=== PATIENT | male | born 1975 | race Caucasian/White ===

== ENCOUNTER → 2019-07-19 | Outpatient (CLI) | payer BC ==
[2019-07-19 08:55] LABS: HEMOGLOBIN 16.1 G/DL (13.3-17.7); MEAN PLATELET VOLUME 9.6 FL (7.4-10.4); RED CELL DISTRIBUTION WIDTH 13.4 % (10.0-14.5); WHITE BLOOD COUNT 9.8 10^3/uL (4.3-11.0)
[2019-07-19 09:22] LABS: ALANINE AMINOTRANSFERASE 78 U/L (0-55); ALBUMIN 4.3 GM/DL (3.2-4.5); ALKALINE PHOSPHATASE 74 U/L (40-136); BUN/CREATININE RATIO 15; CALCIUM 9.1 MG/DL (8.5-10.1); CARBON DIOXIDE 26 MMOL/L (21-32); CHLORIDE 101 MMOL/L (98-107); CREATININE SERUM 0.95 MG/DL (0.60-1.30); GFR ESTIMATED > 60; GLUCOSE 91 MG/DL (70-105); POTASSIUM 4.2 MMOL/L (3.6-5.0); SODIUM 135 MMOL/L (135-145)
== END ==
LOC: LAB 08:24
PROVIDERS: ATTEND Family Medicine
DX: I10 Essential (primary) hypertension (principal); B19.20 Unspecified viral hepatitis C without hepatic coma
CPT/HCPCS: 36415; 80053; 85027; 87522; 87902

== ENCOUNTER → 2019-11-16 | Outpatient (CLI) | payer BC | LOC: LAB 12:04 | PROVIDERS: ATTEND Internal Medicine Gastroenterology | DX: B18.2 Chronic viral hepatitis C (principal) | CPT/HCPCS: 36415; 87522 ==

== ENCOUNTER → 2019-12-07 | Outpatient (CLI) | payer BC | LOC: LAB 14:32 | PROVIDERS: ATTEND Internal Medicine Gastroenterology | DX: B18.2 Chronic viral hepatitis C (principal) | CPT/HCPCS: 36415; 87522 ==

== ENCOUNTER 2020-03-31 16:58 | Emergency (ER) | payer BC ==
[~2020-03-31] VITALS: Ht 182.8 cm; Wt 97.5 kg
[2020-03-31 17:56] LABS: BASOPHILS # (AUTO) 0.1 10^3/uL (0.0-0.1); BASOPHILS % (AUTO) 1 % (0-10); EOSINOPHILS # (AUTO) 0.5 10^3/uL (0.0-0.3); EOSINOPHILS % (AUTO) 6 % (0-10); HEMATOCRIT 50 % (40-54); HEMOGLOBIN 17.3 g/dL (13.3-17.7); LYMPHOCYTES # (AUTO) 2.4 10^3/uL (1.0-4.0); LYMPHOCYTES % (AUTO) 31 % (12-44); MEAN CORPUSCULAR HEMOGLOBIN 34 pg (25-34); MEAN CORPUSCULAR HGB CONC 35 g/dL (32-36); MEAN CORPUSCULAR VOLUME 98 fL (80-99); MEAN PLATELET VOLUME 9.3 fL (9.0-12.2); MONOCYTES # (AUTO) 0.5 10^3/uL (0.0-1.0); MONOCYTES % (AUTO) 7 % (0-12); NEUTROPHILS # (AUTO) 4.2 10^3/uL (1.8-7.8); NEUTROPHILS % (AUTO) 55 % (42-75); PLATELET COUNT 262 10^3/uL (130-400); WHITE BLOOD COUNT 7.6 10^3/uL (4.3-11.0)
[2020-03-31 18:05] LABS: ALBUMIN 4.2 GM/DL (3.2-4.5)
[2020-03-31 18:06] LABS: CHLORIDE 102 MMOL/L (98-107); POTASSIUM 3.9 MMOL/L (3.6-5.0); PROTHROMBIN TIME PATIENT 13.3 SEC (12.2-14.7); SODIUM 138 MMOL/L (135-145)
[2020-03-31 18:07] LABS: CALCIUM 9.4 MG/DL (8.5-10.1)
[2020-03-31 18:08] LABS: GLUCOSE 95 MG/DL (70-105); TOTAL PROTEIN 7.2 GM/DL (6.4-8.2)
[2020-03-31 18:09] LABS: CARBON DIOXIDE 24 MMOL/L (21-32)
[2020-03-31 18:10] LABS: BILIRUBIN,TOTAL 0.7 MG/DL (0.1-1.0)
[2020-03-31 18:11] LABS: ALKALINE PHOSPHATASE 105 U/L (40-136)
[2020-03-31 18:12] LABS: CREATININE SERUM 0.83 MG/DL (0.60-1.30); GFR ESTIMATED > 60
[2020-03-31 18:13] LABS: BUN/CREATININE RATIO 11
[2020-03-31 18:15] LABS: ALANINE AMINOTRANSFERASE 29 U/L (0-55)
--- NOTE | 2020-03-31 18:25 | ED GI ---
General Chief Complaint: Rect Problems Stated Complaint: RECTAL BLEEDING Nursing Triage Note: PT AMB TO [facility] 1 WITH COMPLAINT OF RECTAL BLEEDING. STATES HAS HAD INTERMITTENT DIARRHEA FOR MONTHS. [facility] BLOOD APPEARS TO BE FRESH. Sepsis Screen: No Definite Risk Source of Information: Patient Exam Limitations: No Limitations History of Present Illness Date Seen by Provider: Mar 31, 2020 Time Seen by Provider: 17:30 Allergies and Home Medications Allergies Uncoded Allergies: [id number] (TETANUS) (Allergy, Mild, 10/28/08) Past Lnujhpc-Iiejyc-Gowpuj Hx Patient Social History Alcohol Use: Regular Use Alcohol Beverage of Choice: Whiskey Recreational Drug Use: No Smoking Status: Current Everyday Smoker Type Used: Cigarettes Recent Foreign Travel: No Contact w/Someone Who Travel: No Recent Infectious Disease Expo: No Immunizations Up To Date Tetanus Booster (TDap): Unknown PED Vaccines UTD: Yes Past Medical History Surgeries: No Cardiac: Yes Hypertension Neurological: No Genitourinary: No Gastrointestinal: No Musculoskeletal: No Endocrine: No HEENT: No Cancer: No Psychosocial: No Blood Disorders: No Physical Exam Vital Signs Vital Signs - First Documented 03/31/20 17:18 Temp 36.1 Pulse 103 Resp 17 B/P (MAP) 144/111 (122) Pulse Ox 94 O2 Delivery Room Air Capillary Refill : Less Than 3 Seconds Height/Weight/BMI Height: 6'" Weight: 169lbs. oz. 76.382888hh; 29.00 BMI Method: Progress/Results/Core Measures Results/Orders Lab Results Laboratory Tests Test 03/31/20 17:52 Range/Units White Blood Count 7.6 4.3-11.0 10^3/uL Red Blood Count 5.05 4.30-5.52 10^6/uL Hemoglobin 17.3 13.3-17.7 g/dL Hematocrit 50 40-54 % Mean Corpuscular Volume 98 80-99 fL Mean Corpuscular Hemoglobin 34 25-34 pg Mean Corpuscular Hemoglobin Concent 35 32-36 g/dL Red Cell Distribution Width 12.6 10.0-14.5 % Platelet Count 262 130-400 10^3/uL Mean Platelet Volume 9.3 9.0-12.2 fL Immature Granulocyte % (Auto) 0 % Neutrophils (%) (Auto) 55 42-75 % Lymphocytes (%) (Auto) 31 12-44 % Monocytes (%) (Auto) 7 0-12 % Eosinophils (%) (Auto) 6 0-10 % Basophils (%) (Auto) 1 0-10 % Neutrophils # (Auto) 4.2 1.8-7.8 10^3/uL Lymphocytes # (Auto) 2.4 1.0-4.0 10^3/uL Monocytes # (Auto) 0.5 0.0-1.0 10^3/uL Eosinophils # (Auto) 0.5 H 0.0-0.3 10^3/uL Basophils # (Auto) 0.1 0.0-0.1 10^3/uL Immature Granulocyte # (Auto) 0.0 0.0-0.1 10^3/uL Prothrombin Time 13.3 12.2-14.7 SEC INR Comment 1.0 0.8-1.4 Activated Partial Thromboplast Time 30 24-35 SEC Sodium Level 138 135-145 MMOL/L Potassium Level 3.9 3.6-5.0 MMOL/L Chloride Level 102 98-107 MMOL/L Carbon Dioxide Level 24 21-32 MMOL/L Anion Gap 12 5-14 MMOL/L Blood Urea Nitrogen 9 7-18 MG/DL Creatinine 0.83 0.60-1.30 MG/DL Estimat Glomerular Filtration Rate > 60 BUN/Creatinine Ratio 11 Glucose Level 95 70-105 MG/DL Calcium Level 9.4 8.5-10.1 MG/DL Corrected Calcium 9.2 8.5-10.1 MG/DL Total Bilirubin 0.7 0.1-1.0 MG/DL Aspartate Amino Transf (AST/SGOT) 37 H 5-34 U/L Alanine Aminotransferase (ALT/SGPT) 29 0-55 U/L Alkaline Phosphatase 105 40-136 U/L Total Protein 7.2 6.4-8.2 GM/DL Albumin 4.2 3.2-4.5 GM/DL My Orders Orders - KADE DIAZ MD Cbc With Automated Diff (03/31/20 17:37) Comprehensive Metabolic Panel (03/31/20 17:37) Protime With Inr (03/31/20 17:37) Partial Thromboplastin Time (03/31/20 17:37) Ed Iv/Invasive Line Start (03/31/20 17:37) Fecal Occult Bedside (03/31/20 17:37) Hs C Reactive Protein (03/31/20 18:21) Erythrocyte Sedimentation Rate (03/31/20 18:21) Vital Signs/I&O 03/31/20 17:18 Temp 36.1 Pulse 103 Resp 17 B/P (MAP) 144/111 (122) Pulse Ox 94 O2 Delivery Room Air Blood Pressure Mean: 122 Fecal Occult: Positive Departure Impression Primary Impression: Rectal bleeding Additional Impression: Diarrhea Qualified Codes: R19.7 - Diarrhea, unspecified Disposition: 01 HOME, SELF-CARE Condition: Stable Departure-Patient Inst. Decision time for Depature: 18:23 Referrals: GRISEL MULLIGAN RICHARD A DO (PCP/Family) Primary Care Physician Patient Instructions: Bloody Stools, Adult (DC) Add. Discharge Instructions: Follow-up with Dr. Mulligan or your choice of surgeon or electric wheelchair repairer as soon as possible. Please call on Thursday to make an appointment. You need a colonoscopy to further evaluate your rectal bleeding. Return to the emergency room if symptoms worsen in the meantime. All discharge instructions reviewed with patient and/or family. Voiced understanding. Copy Copies To 1: NAZANIN MONTERROSO DO Copies To 2: GRISEL MULLIGAN JOSHUA T MD Mar 31, 2020 18:25
[2020-03-31 18:38] VITALS: BP 144/111
== END 2020-03-31 18:38 | disposition home or self-care (01) ==
LOC: EDUNIT# 16:58 → ER 16:59
DX: K62.5 Hemorrhage of anus and rectum (principal); R19.7 Diarrhea, unspecified; F17.210 Nicotine dependence, cigarettes, uncomplicated; Z88.7 Allergy status to serum and vaccine
CPT/HCPCS: 36415; 80053; 82274; 85025; 85610; 85652; 85730; 86141

== ENCOUNTER 2020-05-04 05:37 | Outpatient (RCR) | payer BC ==
[~2020-05-04] VITALS: Ht 182.9 cm; Wt 93.0 kg
[~2020-05-04 05:37] MED LIST: LISI10TA2 PO
== END 2020-05-04 11:48 | disposition home or self-care (01) ==
LOC: PREOP 05:37
PROVIDERS: ATTEND Surgery
DX: Z01.812 Encounter for preprocedural laboratory examination (principal); Z20.828 Contact with and (suspected) exposure to other viral communicable diseases; Z80.0 Family history of malignant neoplasm of digestive organs
CPT/HCPCS: 87635

== ENCOUNTER 2020-05-08 09:50 | Day surgery (SDC) | payer BC ==
[~2020-05-08] VITALS: Ht 182.9 cm; Wt 93.0 kg
[2020-05-08] MEDS ORDERED: LACTATED RINGERS 1,000 ML IV ONE (09:51)
--- NOTE | 2020-05-08 10:06 | Progress Note-Pre Operative ---
Pre-Operative Progress Note H&P Reviewed The H&P was reviewed, patient examined and no changes noted. Date Seen by Provider: May 08, 2020 Time Seen by Provider: 10:06 Date H&P Reviewed: May 08, 2020 Time H&P Reviewed: 10:06 Pre-Operative Diagnosis: family history of colon cancer, bright red blood per rectum GRISEL PONCE DO May 08, 2020 10:06
[2020-05-08] MEDS ORDERED: LACTATED RINGERS 1,000 ML IV STA (10:09)
[2020-05-08 10:20] VITALS: BP 141/105
[2020-05-08] MEDS ORDERED: MIDAZOLAM 5 MG/5 ML (VERSED) VIAL ONE (10:38)
[2020-05-08] MEDS ORDERED: PROPOFOL INJECTION 50 ML IV ONE ×2 (10:39→11:06)
[2020-05-08 11:30] VITALS: BP 120/87
--- NOTE | 2020-05-08 11:31 | Progress Note-Post Operative ---
Post-Operative Progess Note Surgeon (s)/Filler Shredder Machine (s) Surgeon GRISEL PONCE DO Filler Shredder Machine: na Pre-Operative Diagnosis family history of colon cancer, bright red blood per rectum Post-Operative Diagnosis Internal hemorrhoids, ascending colon polyp x1, sigmoid colon polyp x1 Procedure & Operative Findings Date of Procedure 05/08/20 Procedure Performed/Findings Colonoscopy with hot biopsy, polypectomy x2 Anesthesia Type per WASTEWATER PROCESS ENGINEER Estimated Blood Loss Estimated blood loss (mL): none Specimens/Packing Specimens Removed Ascending colon polyp x1, sigmoid colon polyp x1 GRISEL PONCE DO May 08, 2020 11:31
--- NOTE | 2020-05-08 11:32 | Discharge Inst-Simple/Standard ---
Discharge Inst-Standard Patient Instructions/Follow Up Plan of Care/Instructions/FU: 2 weeks Ese Activity as Tolerated: Yes Discharge Diet: Regular Diet GRISEL PONCE DO May 08, 2020 11:32
[2020-05-08 11:35] VITALS: BP 125/86
[2020-05-08 11:40] VITALS: BP 125/86
[2020-05-08 12:20] VITALS: BP 130/89
[2020-05-08 12:25] VITALS: BP 130/89
--- NOTE | 2020-05-08 13:36 | Anesthesia-General Post-Op ---
MAC Patient Condition Mental Status/LOC: Same as Preop Cardiovascular: Satisfactory Nausea/Vomiting: Absent Respiratory: Satisfactory Pain: Controlled Complications: Absent Post Op Complications Complications None Follow Up Care/Instructions Patient Instructions None needed. Anesthesiology Discharge Order Discharge Order Patient is doing well, no complaints, stable vital signs, no apparent adverse anesthesia problems. No complications reported per nursing. AMAN CARRILLO CRNA May 08, 2020 13:36
--- NOTE | 2020-05-08 14:37 | OPERATIVE REPORT ---
DATE OF SERVICE: 05/08/2020 PREOPERATIVE DIAGNOSIS: Family history of colon cancer, bright red blood per rectum. POSTOPERATIVE DIAGNOSES: Internal hemorrhoid, descending colon polyp x1 and sigmoid colon polyp x1. PROCEDURES PERFORMED: Colonoscopy with hot biopsy polypectomy x2. SURGEON: Grisel Mulligan DO. ANESTHESIA: Per RN RADIOLOGY. ESTIMATED BLOOD LOSS: None. COMPLICATIONS: None. INDICATIONS FOR PROCEDURE: The patient is a 44-year-old male with family history of colon cancer and has had bright red bleeding per rectum. He understands the risks and benefits of the procedures and wished to proceed with the procedure. Consent was signed in the chart. DESCRIPTION OF PROCEDURE: The patient was taken to the endoscopy suite and placed in a left lateral recumbent position. Timeout was performed. Digital rectal exam was performed. There were no palpable polyps, masses and ulcerations, but there was internal hemorrhoidal disease. Scope was inserted in the rectum, advanced all the way to cecum with minimal difficulty. Prep was adequate. Scope was then slowly retracted back. There were no polyps, masses or ulcerations within the cecum. In the ascending colon, a small polyp was present, which hot biopsy polypectomy was performed. Scope was then continuously retracted back. There were no other polyps, masses or ulcerations within the remainder of the ascending, transverse and descending colon. In the sigmoid colon, another small polyp was present, which hot biopsy polypectomy was performed. Scope was then continuously retracted back into the rectum, where the scope was retroflexed noting internal hemorrhoids. No other pathology. Scope was returned to its normal position, slowly withdrawn until completely removed. The patient tolerated the procedure well without any complications and taken to the recovery room in a stable condition. RECOMMENDATIONS: The patient will need repeat colonoscopy in five years. Any issues before that be seen at that time. The patient will follow up on pathology in the office in approximately two weeks. We would also consider hemorrhoid energy therapy (HET) for internal hemorrhoids. Job ID: [id number] DocumentID: [id number] Dictated Date: 05/08/2020 11:35:06 Roller Leveler Operator Date: 05/08/2020 14:37:23 Dictated By: GRISEL MULLIGAN DO
== END 2020-05-08 12:25 | disposition home or self-care (01) ==
LOC: ENDO 09:50
PROVIDERS: ATTEND Surgery
DX: D12.2 Benign neoplasm of ascending colon (principal); K63.5 Polyp of colon; K92.1 Melena; K64.8 Other hemorrhoids; I10 Essential (primary) hypertension; K21.9 Gastro-esophageal reflux disease without esophagitis; F17.210 Nicotine dependence, cigarettes, uncomplicated; Z79.899 Other long term (current) drug therapy; Z88.7 Allergy status to serum and vaccine; Z80.0 Family history of malignant neoplasm of digestive organs

== ENCOUNTER → 2022-09-26 | Outpatient (CLI) | payer BC, MEDICAID, OTHER ==
[~2022-09-26] MED LIST changes: -LISI10TA2 PO; +LISI10TA25 PO
== END ==
LOC: CARD 08:01
PROVIDERS: ATTEND Nurse Practitioner Family
DX: Z86.79 Personal history of other diseases of the circulatory system (principal)
CPT/HCPCS: 93225; 93226

== ENCOUNTER → 2022-11-03 | Outpatient (CLI) | payer OTHER | LOC: CARD 11:39 | PROVIDERS: ATTEND Internal Medicine Cardiovascular Disease | DX: I35.1 Nonrheumatic aortic (valve) insufficiency (principal) | CPT/HCPCS: 93306 ==